=== PATIENT | male | born 2000 | race African-American/Black ===

== ENCOUNTER 2023-01-22 13:27 | Emergency (ER) | payer BC ==
[~2023-01-22] VITALS: Ht 177.8 cm; Wt 88.6 kg
[2023-01-22 13:37] VITALS: TEMP 99.9
[2023-01-22 15:16] VITALS: BP 126/88; PULSE 96
== END 2023-01-22 15:27 | disposition home or self-care (01) ==
LOC: COL.ER 13:27
DX: J06.9 Acute upper respiratory infection, unspecified (principal)
CPT/HCPCS: J7030